=== PATIENT | male | born 1990 | race Caucasian/White ===

== ENCOUNTER 2023-05-16 04:02 | Emergency (ER) | payer MEDICAID, SELFPAY ==
[2023-05-16 04:03] VITALS: BP 164/106; PULSE 142; RESP 16; TEMP 36.6; O2SAT 94; BMI 25.4
--- NOTE | 2023-05-16 04:35 | CT_ITS ---
INDICATION: head injury EXAMINATION: CT BRAIN - CT Head or Brain W/O Contrast Injection TECHNIQUE: Multiple axial images were obtained of the head without intravenous contrast. A radiation dose optimization technique was used for this scan. IV Contrast dosage and agent: None. RADIATION DOSAGE (If Supplied By Facility): CTDIvol = ( 44.99 ) mGy, DLP = ( 829.85 ) mGycm COMPARISON: None. FINDINGS: BRAIN: No acute bleed. No edema. Aviles-white matter differentiation is maintained. VENTRICLES AND SULCI: Not dilated. EXTRA-AXIAL: No hemorrhage, fluid collection, or mass. CALVARIUM / SKULL BASE: Unremarkable. FACE/SINUSES: Right orbital fractures and fractures of the right maxillary sinus and zygomatic arch partially included. Fluid level in the right maxillary sinus. SOFT TISSUES: Unremarkable. CT/Brain/Head without Contrast IMPRESSION: No evidence of acute intracranial injury. Right orbital and facial fractures. CT facial bones was obtained and will be reported separately. Electronically Signed: Lona Pereira MD at 4:55 EDT ,
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
[2023-05-16] MEDS: oxyCODONE 5 MG Tablet 10 MG PO (04:52)
[2023-05-16 06:26] VITALS: BP 168/78; PULSE 121; RESP 18; O2SAT 99
== END 2023-05-16 06:27 | disposition home or self-care (01) ==
PROVIDERS: Emergency Provider Emergency Medicine; Visit Provider Emergency Medicine
DX: S02.30XA Fracture of orbital floor, unspecified side, initial encounter for closed fracture (principal); F17.290 Nicotine dependence, other tobacco product, uncomplicated; F14.90 Cocaine use, unspecified, uncomplicated; R04.0 Epistaxis; Y04.8XXA Assault by other bodily force, initial encounter
CPT/HCPCS: 70450; 70486; 99282